=== PATIENT | male | born 1990 | race American Indian/Alaskan Native ===

== ENCOUNTER 2017-12-27 00:09 | Emergency (ER) | payer SELFPAY ==
[2017-12-27] MEDS ORDERED: MORPHINE IV ONE (01:00)
[2017-12-27] MEDS ORDERED: MORPHINE ONE (01:01)
--- NOTE | 2017-12-27 01:04 | XRay Report ---
FINAL REPORT PROCEDURE: XR SHOULDER 1V RT TECHNIQUE: RIGHT shoulder radiograph, single frontal view. HISTORY: poss dislocated rt shoulder COMPARISON: No prior studies are available for comparison. FINDINGS: There is an inferior dislocation of the humerus in relation to the glenoid. Further evaluation after reduction with a repeat radiograph is recommended. IMPRESSION: Inferior dislocation of the humerus in relation to the glenoid
[2017-12-27] MEDS ORDERED: KETAMINE HCL IV ONE ×2 (01:14→02:11)
--- NOTE | 2017-12-27 01:21 | Emergency Department Report ---
HPI - General Chief Complaint: Extremity Injury, Upper Time Seen by Provider: 12/27/17 00:42 - HPI HPI: 27-year-old male presents to the emergency department with complaint of right shoulder pain with his arm stuck up in the air with suspicion for dislocation. The patient says he has a history of that shoulder being dislocated one time in the past and also says that he recently tore his rotator cuff. This evening, the patient got excited, and celebrated by raising his fist to the amy and it got stuck there. He did not take anything for her symptoms. Presentation. He otherwise denies any other past medical history. He is right-hand dominant. ED Past Medical Hx - Past Medical History Previous Medical History?: No - Surgical History Past Surgical History?: Yes Additional Surgical History: Right shoulder - Social History Smoking Status: Current Every Day Smoker Substance Use Type: Alcohol, Marijuana - Medications Home Medications: Home Medications Medication Instructions Recorded Confirmed Last Taken Type No Known Home Medications [No 12/27/17 12/27/17 Unknown History Reported Home Medications] ED Review of Systems ROS: Stated complaint: SHOULDER INJURY Other details as noted in HPI Comment: All other systems reviewed and negative Constitutional: denies: chills, fever Eyes: denies: eye pain, eye discharge, vision change ENT: denies: ear pain, throat pain Respiratory: denies: cough, shortness of breath, wheezing Cardiovascular: denies: chest pain, palpitations Gastrointestinal: denies: abdominal pain, nausea, diarrhea Genitourinary: denies: urgency, dysuria Musculoskeletal: arthralgia. denies: back pain Skin: denies: rash, lesions Neurological: denies: headache, weakness, paresthesias Physical Exam - Physical Exam Vital Signs: Vital Signs 12/27/17 00:17 Temperature 98 F Pulse Rate 72 Blood Pressure 115/38 O2 Sat by Pulse 98 Oximetry Physical Exam: GENERAL: The patient is well-developed well-nourished. HENT: Normocephalic. Atraumatic. Patient has moist mucous membranes. EYES: Extraocular motions are intact. NECK: Supple. Trachea is midline. CHEST/LUNGS: Clear to auscultation. There is no respiratory distress noted. HEART/CARDIOVASCULAR: Regular. There is no tachycardia. There is no murmur. ABDOMEN: Abdomen is soft, nontender. Patient has normal bowel sounds. There is no abdominal distention. SKIN: Skin is warm and dry. NEURO: The patient is awake, alert, and oriented. The patient is cooperative. The patient has no focal neurologic deficits. The patient has normal speech. MUSCULOSKELETAL: There is tenderness palpation to the right shoulder. The patient holds the right arm abducted to a 90 at the shoulder height and is unable to lower it any further without severely increasing his pain. Radial pulse +2 over 4 and Refill less than 2 seconds to the affected right upper extremity.. ED Course Vital Signs 12/27/17 00:17 Temperature 98 F Pulse Rate 72 Blood Pressure 115/38 O2 Sat by Pulse 98 Oximetry - Moderate Sedation Indications: fracture/dislocation redu ASA Class: I Mallampati Airway Score: 1 Time of Last PO Intake: 12:00 Preparation: cardiac exercise specialist applied, pulse oximeter, capnometry used, supplemental O2 applied, suction/airway equipment at bedside, IV secured Ketamine: IV Ketamine Dose: 50 IV Propofol Dose (mgs): 60 Complications: none Patient Tolerated Procedure: well - Orthopedic Joint Reduction Joint #1 Consent Obtained: verbal consent, written consent Time Out Performed: Yes Side: right Joint Reduction Location: shoulder Analgesia: moderate sedation Shoulder Technique Used (if applicable): traction/counter-traction Technique Used: traction/counter-traction Post-Reduction Neuro Exam: intact Post-Reduction Vascular Exam: intact Post Reduction X-Ray Obtained: Yes Post Reduction X-Ray Results: reduced Splint Applied: Yes (shoulder immobilizer) Patient Tolerated Procedure: well ED Medical Decision Making - Radiology Data Radiology results: image reviewed interpreted by me: First x-ray of the right shoulder shows a inferior dislocation. Post reduction attempt x-ray shows appropriate reduction of the humeral head into the glenohumeral joint. - Medical Decision Making Patient presents with an inferior shoulder dislocation. We did moderate sedation and I was able to reduce the shoulder with traction countertraction. The patient was monitored for about an hour or so after the procedure to make sure that he has gone back to a normal mental status and that his vitals remained normal, which he did and they have. He was placed in a shoulder immobilizer. Patient remained neurovascularly intact throughout his ED course. He was instructed to keep the shoulder immobilizer in place until follow-up with orthopedist was given a referral for both Dr. Jeffers and resurgenctrish. He will return to the emergency Department with any worsening of his symptoms or any acute distress. Portions of this chart were dictated using dictation software, and therefore there may be some dictation errors within this note. - Differential Diagnosis shoulder dislocation, rotator cuff tear, contusion, fracture Critical Care Time: No Critical care attestation.: If time is entered above; I have spent that time in minutes in the direct care of this critically ill patient, excluding procedure time. ED Disposition Clinical Impression: Inferior dislocation of right shoulder Qualifiers: Encounter type: initial encounter Qualified Code(s): S43.034A - Inferior dislocation of right humerus, initial encounter Disposition: DC- TO HOME OR SELFCARE Is pt being admited?: No Condition: Stable Instructions: Shoulder Dislocation (ED) Additional Instructions: Please follow up with an orthopedist in the next few days regarding your shoulder dislocation. Remain in the shoulder immobilizer until follow-up with the orthopedist. Return to the emergency Department with any worsening of your symptoms or any acute distress. Referrals: MICHAEL JEFFERS MD [Staff Physician] - [facility] [Provider Group] - [facility] Time of Disposition: 03:12
[2017-12-27] MEDS ORDERED: NACL 0.9% 1000 ML 1,000 ML IV ONE (01:28)
[2017-12-27] MEDS ORDERED: DIPRIVAN 10 MG/ML IV ONE ×2 (01:29→02:10)
--- NOTE | 2017-12-27 02:38 | XRay Report ---
FINAL REPORT PROCEDURE: XR SHOULDER 1V RT TECHNIQUE: RIGHT shoulder radiographs including AP views in internal and external rotation. CPT 11178 HISTORY: post reduction COMPARISON: Earlier the same date FINDINGS: The dislocation has been reduced. No evidence of an acute fracture. IMPRESSION: Reduced dislocation. No evidence of an acute fracture.
[2017-12-27 03:27] VITALS: BP 111/57
== END 2017-12-27 03:29 | disposition home or self-care (01) ==
LOC: ED 00:09
DX: S43.034A Inferior dislocation of right humerus, initial encounter (principal); F17.200 Nicotine dependence, unspecified, uncomplicated; F12.10 Cannabis abuse, uncomplicated; X58.XXXA Exposure to other specified factors, initial encounter; Y93.89 Activity, other specified; Y92.89 Other specified places as the place of occurrence of the external cause; Y99.8 Other external cause status
CPT/HCPCS: 23650; 73020; 96374; 99283; J2270; J2704; J7030